=== PATIENT | female | born 1960 | race Caucasian/White ===

== ENCOUNTER → 2016-09-19 | Outpatient (CLI) | payer MEDICARE, OTHER ==
[~2016-09-19] MED LIST: ALBUTEROL17 GM INH; ANTIVERT PO; ASPIRIN81 MG PO; CLARITIN10 M2 PO; COLESTID1 GM PO; DITROPAN5 MG PO; FLEXERIL PO; FLEXERIL10 MG PO; GLUCOPHAGE500 M1 PO; INVOKANA100 MG PO; LANTUS SOLOSTAR3 ML SUBQ; LATUDA40 MG PO; LATUDA60 MG PO; LEVEMIR100 U/ML SUBQ; LIPITOR40 MG PO; LITHIUM CARBON300 M1 PO; LITHIUM PO; NOVOLOG FL100 UNIT/1 SUBQ; PRILOSEC PO; VOLTAREN75 MG PO
--- NOTE | ~2016-09-19 | US98 ---
[facility] A Service of [facility] & [facility] RADIOLOGY TEXT RESULTS PATIENT: TOMÁS DENNIS LOCATION: [facility] : 60 UNIT #: [id number] AGE: [address]: Jose Moore MD SEX: F ORDER DR: [id number] [facility] [address] [place], [place] [address] [id number] O MR#: [id number] Acc #: [id number] NAME: TOMÁS DENNIS : 1960 SEX: F STUDY DATE/TIME: 09/19/2016 10:25 UNIT: [facility] ROOM: STUDY DESCRIPTION: US Pelvic Non-OB Complete Attending Physician: Jose Moore M.D. Referring Physician: Jose Moore M.D. Ordering Physician: Jose Moore M.D. Primary Care Physician: Jose Moore M.D. MEDICAL IMAGING REPORT This report is preliminary unless electronic signature is present EXAM Transabdominal and transvaginal pelvic ultrasound 09/19/2016 HISTORY Pelvic mass on physical examination 09/15/2016. Pelvic pain and tightening feeling in the left lower quadrant since May 2016. FINDINGS Transabdominal and transvaginal pelvic ultrasound was performed. Endovaginal ultrasound was performed for attempted better visualization of the adnexal structures. The bladder is normal in appearance. The uterus measures 11.9 cm craniocaudal x 6 cm AP x 7.3 cm transverse. The endometrial stripe measures 6 mm. There is an ill-defined fibroid along the anterior aspect of the uterine body measuring 1.4 cm. The ovaries were not identified on either transabdominal or transvaginal portions of the examination. No adnexal mass was seen and there is no free fluid in the pelvis. IMPRESSION 1. Diffusely enlarged uterus demonstrating a 1.4 cm discrete fibroid along the anterior aspect of the uterine body. 2. The ovaries were not identified on either transabdominal or transvaginal portions of the examination. No adnexal mass was seen and there is no free fluid in the pelvis. Dictated by... Joseph Clark M.D. THIS IS AN ELECTRONICALLY VERIFIED REPORT Joseph Clark M.D. at 09/21/2016 6:18 AM KRT/to TD: 09/20/2016 13:06 [facility] [place]. [facility] A Service of [facility] & [facility] RADIOLOGY TEXT RESULTS PATIENT: TOMÁS DENNIS LOCATION: [facility] : 60 UNIT #: [id number] AGE: [address]: Jose Moore MD SEX: F ORDER DR: JINA #: [id number] MEDICAL IMAGING REPORT Page 1 of 1 COPY
--- NOTE | ~2016-09-19 | MY29 ---
[facility] A Service of [facility] & [facility] RADIOLOGY TEXT RESULTS PATIENT: TOMÁS DENNIS LOCATION: [facility] : 60 UNIT #: [id number] AGE: [address]: Jose Moore MD SEX: F ORDER DR: [id number] [facility] [address]. [place], [place] [address] [id number] O MR#: [id number] Acc #: [id number] NAME: TOMÁS DENNIS : 1960 SEX: F STUDY DATE/TIME: 09/19/2016 11:08 UNIT: [facility] ROOM: STUDY DESCRIPTION: MY [facility] SCREENING W/ CAD BILAT Attending Physician: Jose Moore M.D. Referring Physician: Jose Moore M.D. Ordering Physician: Jose Moore M.D. Primary Care Physician: Jose Moore M.D. MEDICAL IMAGING REPORT This report is preliminary unless electronic signature is present EXAM Digital screening mammogram 09/19/2016, [facility] HISTORY 55-year-old woman positive family history, grandmother, aunt, sister. Family history of ovarian cancer in sister. Annual screen. COMPARISON Mammogram 07/29/2015 FINDINGS Digital imaging of each breast was completed utilizing screening protocol. Review includes FDA-approved CAD device. Breast parenchyma is fatty replaced. Circumscribed nodule outer hemisphere right breast consistent with intramammary lymph node and stable. Small circumscribed nodule left breast mid outer location also consistent with intramammary lymph node and stable. There is no interval occurring mass. There are no suspicious microcalcifications and no architectural deformity. IMPRESSION Negative mammogram. Annual screening recommended. Patient's over the age of 40 are entered into a reminder system with target due date for the next mammogram. A result letter will be sent to the patient. BIRADS: 1 Negative Dictated by... Haresh Murillo M.D. THIS IS AN ELECTRONICALLY VERIFIED REPORT [facility] A Service of [facility] & [facility] RADIOLOGY TEXT RESULTS PATIENT: TOMÁS DENNIS LOCATION: [facility] : 60 UNIT #: [id number] AGE: [address]: Jose Moore MD SEX: F ORDER DR: Haresh Murillo M.D. at 09/21/2016 8:06 AM EDIL/jasper TD: 09/19/2016 19:48 JOB #: [id number] MEDICAL IMAGING REPORT Page 1 of 1 COPY
== END | disposition home or self-care (01) ==
LOC: CWCC 10:07
DX: Z12.31 Encounter for screening mammogram for malignant neoplasm of breast (principal); R10.9 Unspecified abdominal pain; Z80.3 Family history of malignant neoplasm of breast; Z80.41 Family history of malignant neoplasm of ovary; N85.2 Hypertrophy of uterus; D25.9 Leiomyoma of uterus, unspecified
CPT/HCPCS: 76830; 76856; G0202